=== PATIENT | female | born 1985 | race Caucasian/White ===

== ENCOUNTER → 2021-06-05 13:19 | Outpatient (BNVA) | payer MEDICARE, MEDICAID, SELFPAY | PROVIDERS: PCP Physician Assistant Medical; Visit Provider Nurse Practitioner Family | DX: G43.709 Chronic migraine without aura, not intractable, without status migrainosus (principal); G24.9 Dystonia, unspecified; G56.03 Carpal tunnel syndrome, bilateral upper limbs; Z87.898 Personal history of other specified conditions; Z79.899 Other long term (current) drug therapy | CPT/HCPCS: 99212 ==

== ENCOUNTER → 2021-10-17 13:33 | Outpatient (BNVA) | payer MEDICARE, MEDICAID, SELFPAY | PROVIDERS: PCP Physician Assistant Medical; Visit Provider Nurse Practitioner Family | DX: G43.709 Chronic migraine without aura, not intractable, without status migrainosus (principal); G24.9 Dystonia, unspecified; R51.9 Headache, unspecified | CPT/HCPCS: 99212 ==

== ENCOUNTER → 2022-01-18 10:56 | Outpatient (BNVA) | payer MEDICARE, MEDICAID, SELFPAY | PROVIDERS: PCP Physician Assistant Medical; Visit Provider Nurse Practitioner Family | DX: G43.709 Chronic migraine without aura, not intractable, without status migrainosus (principal); R63.5 Abnormal weight gain; G24.9 Dystonia, unspecified; G56.03 Carpal tunnel syndrome, bilateral upper limbs | CPT/HCPCS: 99212 ==

== ENCOUNTER → 2022-03-07 13:51 | Outpatient (BNVA) | payer MEDICARE, MEDICAID, SELFPAY | PROVIDERS: PCP Physician Assistant Medical; Visit Provider Nurse Practitioner Family | DX: G43.709 Chronic migraine without aura, not intractable, without status migrainosus (principal); G56.03 Carpal tunnel syndrome, bilateral upper limbs; R29.6 Repeated falls | CPT/HCPCS: 99212 ==

== ENCOUNTER → 2022-06-07 15:27 | Outpatient (BNVA) | payer MEDICARE, MEDICAID, SELFPAY | PROVIDERS: PCP Physician Assistant Medical; Visit Provider Nurse Practitioner Family | DX: G43.709 Chronic migraine without aura, not intractable, without status migrainosus (principal); G24.9 Dystonia, unspecified; R26.9 Unspecified abnormalities of gait and mobility; R29.6 Repeated falls; G89.29 Other chronic pain | CPT/HCPCS: 99212 ==

== ENCOUNTER → 2022-09-06 14:59 | Outpatient (BNVA) | payer MEDICARE, MEDICAID, SELFPAY | PROVIDERS: PCP Physician Assistant Medical; Visit Provider Nurse Practitioner Family | DX: M25.572 Pain in left ankle and joints of left foot (principal) | CPT/HCPCS: 99212 ==

== ENCOUNTER → 2022-09-26 15:54 | Outpatient (BNVA) | payer MEDICARE, MEDICAID, SELFPAY | PROVIDERS: PCP Physician Assistant Medical; Visit Provider Anesthesiology | DX: Q79.60 Ehlers-Danlos syndrome, unspecified (principal); G89.4 Chronic pain syndrome; M25.572 Pain in left ankle and joints of left foot; M26.609 Unspecified temporomandibular joint disorder, unspecified side; R26.9 Unspecified abnormalities of gait and mobility; M47.812 Spondylosis without myelopathy or radiculopathy, cervical region; M54.81 Occipital neuralgia; G90.A Postural orthostatic tachycardia syndrome [POTS] | CPT/HCPCS: 99212 ==

== ENCOUNTER → 2023-10-08 09:44 | Outpatient (BNV) | payer MEDICARE, MEDICAID, SELFPAY | PROVIDERS: PCP Physician Assistant Medical; Visit Provider Internal Medicine Medical Oncology | DX: Q79.60 Ehlers-Danlos syndrome, unspecified (principal); G71.3 Mitochondrial myopathy, not elsewhere classified | CPT/HCPCS: 99204 ==

== ENCOUNTER 2023-12-31 14:38 | Outpatient (AMB) | payer MEDICARE, MEDICAID, SELFPAY ==
--- NOTE | 2023-12-31 14:58 | A.OFFVIS_ITS ---
Vital Signs 12/31/23 14:59 Height 5 ft 4 in Weight 163 lb BMI 28.0 BP 98/58 L Blood Pressure Location Rt brachial Position Sitting Respiration 16 Pulse 126 H Pulse Source Pulse Oximeter Pulse Oximetry (%) 98 Oxygen Delivery Method Room Air Intake Visit Reasons: F/up for Migraines-CONF Intake Note: Pt presents to the office for follow up migraines. Export Administrator Required: No Allergies apple [APPLE] Allergy (Severe, Verified 12/31/23 14:58) ANAPHYLAXIS clonidine Allergy (Severe, Verified 12/31/23 14:58) Hypertension cranberry Allergy (Severe, Verified 12/31/23 14:58) Anaphylaxis cyclobenzaprine [From Flexeril] Allergy (Severe, Verified 12/31/23 14:58) Anaphylaxis egg Allergy (Severe, Verified 12/31/23 14:58) Stomach Upset ketorolac [From TORADOL] Allergy (Severe, Verified 12/31/23 14:58) DIFFICULTY BREATHING Milk Containing Products (Dairy) [Milk Containing Products] Allergy (Severe, Verified 12/31/23 14:58) Unknown atorvastatin [From Lipitor] Allergy (Intermediate, Verified 12/31/23 14:58) Unknown broccoli [BROCCOLI] Allergy (Intermediate, Verified 12/31/23 14:58) SWELLING spironolactone [SPIRONOLACTONE] Allergy (Intermediate, Verified 12/31/23 14:58) JOINT SWELLING banana Allergy (Unknown, Verified 12/31/23 14:58) Unknown blueberry Allergy (Unknown, Verified 12/31/23 14:58) Unknown gabapentin [From Neurontin] Allergy (Unknown, Verified 12/31/23 14:58) LISTLESS minocycline [MINOCYCLINE] Allergy (Unknown, Verified 12/31/23 14:58) SWELLING nortriptyline Allergy (Unknown, Verified 12/31/23 14:58) unknown promethazine [Phenergan] Allergy (Unknown, Verified 12/31/23 14:58) unknown tizanidine Allergy (Unknown, Verified 12/31/23 14:58) Migraine methocarbamol [From Robaxin] Allergy (Verified 12/31/23 14:58) Blister metoclopramide Adverse Reaction (Intermediate, Verified 12/31/23 14:58) Confusion diclofenac [From VOLTAREN] Adverse Reaction (Unknown, Verified 12/31/23 14:58) BLOOD STOOL levocarnitine [From CARNITOR] Adverse Reaction (Unknown, Verified 12/31/23 14:58) NAUSEA & VOMITING tramadol [Tramadol] Adverse Reaction (Unknown, Verified 12/31/23 14:58) CONSTIPATION CHICK PEAS Allergy (Severe, Uncoded 12/31/23 14:58) DIFFICULTY BREATHING citrus fruits Allergy (Severe, Uncoded 12/31/23 14:58) Vomiting grapes, green grapes Allergy (Severe, Uncoded 12/31/23 14:58) Anaphylaxis HEMP Allergy (Severe, Uncoded 12/31/23 14:58) DIFFICULTY BREATHING ALL TRIPTYLINE DRUGS Allergy (Unknown, Uncoded 12/31/23 14:58) HIVES amitriptyline Allergy (Unknown, Uncoded 12/31/23 14:58) unknown ANIMAL PROTEIN Allergy (Unknown, Uncoded 12/31/23 14:58) SWELLING animal protein Allergy (Unknown, Uncoded 12/31/23 14:58) unknown Animal proteins Allergy (Unknown, Uncoded 12/31/23 14:58) Unknown Carnitor Allergy (Unknown, Uncoded 12/31/23 14:58) Unknown Flexeril Allergy (Unknown, Uncoded 12/31/23 14:58) unknown From FLEXERIL Allergy (Unknown, Uncoded 12/31/23 14:58) HIVES FRUIT Allergy (Unknown, Uncoded 12/31/23 14:58) SWELLING fruit Allergy (Unknown, Uncoded 12/31/23 14:58) unknown hemp Allergy (Unknown, Uncoded 12/31/23 14:58) unknown Spironolactone Allergy (Unknown, Uncoded 12/31/23 14:58) unknown Tramadol Allergy (Unknown, Uncoded 12/31/23 14:58) unknown Tizanidine Hydrochloride Adverse Reaction (Severe, Uncoded 12/31/23 14:58) Migraine Medication List - Last Reconciled 12/31/23 by BONNIE Rouse albuterol sulfate 90 mcg/actuation 2 puffs inhalation QID PRN 30 days benzocaine 10% 1 appl mucous membrane BID PRN jloctemkfb-efwvrkffcrmog-vnzc 50-325-40 mg 1 tab PO Q4H PRN 30 days bfdfinhkytlu-hhsmetjhwni-klrom 1,000-200 mcg 1 tab PO DAILY diazepam 5 mg PO TID PRN 30 days diphenhydramine HCl (Benadryl) 50 mg PO DAILY PRN epinephrine 0.3 mg IM DIRECTED erenumab-aooe (Aimovig Autoinjector) 140 mg subcut ONCE 30 days etonogestrel (Nexplanon) 68 mg subdermal DAILY lidocaine 5% 5 appl topical TID PRN methocarbamol 1,000 mg (2 x 500 mg) PO TID 30 days metoprolol succinate ER 50 mg PO BID 90 days ondansetron 8 mg PO DAILY PRN 30 days rimegepant (Nurtec ODT) 75 mg PO ONCE PRN 30 days topiramate 50 mg PO BID 30 days trihexyphenidyl 2 mg PO TID PRN zolmitriptan (Zomig) take 1 tab at onset of headache; if no relief, may repeat 1 tab after at least 2 hrs; max = 2 tabs/24 hrs PO 30 days HPI Comments Details: 38-yr-old [male] presents for f/u visit. Pt reports that her current migraine regimen is helping to take the edge off but she is still having daily migraine. The migraine causes right facial droop, sometimes discolored periorbital. She feels Nurtec prn helps but has too many migraine days so does not have enough to treat all migraines. She is interested in trying alternative migraine prevention tx, as aimovig is not fully effective. She does note that the aimovig has reduced her chronic diarhea symptoms. She [place] saw [facility] [place] y[place], and states was told her GI s/s were autonomic but she could have a colonoscopy- though this never happened. She does wonder if we can order IV fluids to help w/ her POTs s/s/, orthostatic lightheadedness. She is also having right and now left sided episodes of severe sharp stabbing in all 3 trigeminal nerve pathways- triggered by light touch. She is now by seen by [facility] dental school who is working to improve her bite and TMJ function. She had consult for ON block- but was advised that OJHN block would not help TN s/s. She did not fully understand why- but reviewed rationale and pt understands. Her fingers do continue to posture at times. Compliant w/ Trihexyphenidyl and diazepam. Has been having body and hip pains. Has consult w/ Dr Mckeon, junior bookkeeper, to re-establish care. [facility] Medical History JC (acute kidney injury) Surgical History History of ear surgery History of mandibular surgery Family History Father Diabetes Thyroid disease Mother Diabetes Polycystic ovary syndrome MCAD deficiency Social History Household Members: Significant Other Alcohol intake: current Alcohol intake frequency: a few times a month Patient Tobacco Use Status: Current everyday Tobacco user service: No Current occupational status: disabled Physical Exam Vital Signs: Last Vital Signs Pulse 126 H 12/31/23 14:59 Resp 16 12/31/23 14:59 BP 98/58 L 12/31/23 14:59 Pulse Ox 98 12/31/23 14:59 Oxygen Delivery Method Room Air 12/31/23 14:59 BMI result Body Mass Index 28.0 Const General: cooperative and no acute distress Orientation/consciousness: patient oriented x3 Resp Effort & Inspection: normal respiratory effort and able to speak in complete sentences Neuro Other: Retrognathia Mild right facial asymmetry- chronic Uses her partner for support to walk short distances. General: patient oriented x3 Cognition (Neuro): normal cognition Psych Appearance: grossly normal Mental Status: mental status grossly normal Speech and movement: Normal speech and movement present Affect: normal affect Attitude: cooperative Assessment & Plan Assessment & Plan (1) Chronic migraine without aura: Code(s): G43.709 - Chronic migraine without aura, not intractable, without status migrainosus Category: Medical (2) History of syncope: Code(s): Z87.898 - Personal history of other specified conditions Category: Medical (3) Dystonia: Code(s): G24.9 - Dystonia, unspecified Category: Medical (4) Trigeminal neuralgia: Comment: Bilateral R > L, probable TN Code(s): G50.0 - Trigeminal neuralgia Category: Medical Plan General: Will request GI input regarding chronic diarrhea/loose stools prior to considering scheduling routine IVFs. Physiatry consult w/ Dr Mckeon as scheduled. For migraine prevention: Start Doxepin 10-20mg qhs- this may help her TN and POTs s/s as well. Start Vyepti 100mg IV q 12 weeks. Once Vyepti started, stop Aimovig as Aimovig not fully effective. Continue Topiramate 50mg bid. Continue Meloxicam 1000mg tid. Continue Metoprolol- uses for POTs- would not increase further d/t [place] s/s Previous trials- amitriptyline/nortriptyline- not tolerated. For acute migarine tx: Continue Zofran (ordered as ODT today) Continue Rizatriptan. Sparingingly use of Fioricet - prn. Continue Nurtec ODT 75mg qd prn migraine, as naratriptan helps w/ migraine induced nausea more so than headache and rizatripatn helps but not always. Previous trials: ubrelvy- did not tolerate. Naratriptan- was helpful- but denied by her insurance. For dystonia: Continue Diazepam 5 mg tid. Continue Trihexyphenidyl 2mg tid f/u in 3-4 months or sooner prn. Orders: Referrals Gastroenterology Referral K52.9 - Noninfective gastroenteritis and colitis, unspecified Medications: New doxepin 10 - 20 mg (1 - 2 x 10 mg) PO BEDTIME 30 caps 3RF 30 days eptinezumab-jj (Vyepti) administer over 30 mins 100 mg IV [id number] G43.709 - Chronic migraine without aura, not intractable, without status migrainosus Coding Level of Care Code Est Pt Level 4 (84007) Diagnoses Chronic migraine without aura G43.709 History of syncope Z87.898 Dystonia G24.9 Trigeminal neuralgia G50.0
[2023-12-31 14:59] VITALS: BP 98/58; PULSE 126; RESP 16; O2SAT 98; BMI 28.0
== END 2023-12-31 15:53 | disposition home or self-care (01) ==
PROVIDERS: PCP Physician Assistant Medical; Visit Provider Nurse Practitioner Family
DX: G43.709 Chronic migraine without aura, not intractable, without status migrainosus (principal); Z87.898 Personal history of other specified conditions; G24.9 Dystonia, unspecified; G50.0 Trigeminal neuralgia
CPT/HCPCS: 99214

== ENCOUNTER → 2023-12-31 14:38 | Outpatient (BNVA) | payer MEDICARE, MEDICAID, SELFPAY | PROVIDERS: PCP Physician Assistant Medical; Visit Provider Nurse Practitioner Family | DX: G43.709 Chronic migraine without aura, not intractable, without status migrainosus (principal); G50.0 Trigeminal neuralgia; G24.9 Dystonia, unspecified; Z87.898 Personal history of other specified conditions | CPT/HCPCS: 99212 ==

== ENCOUNTER 2025-01-06 12:12 | Outpatient (AMB) | payer MEDICARE, MEDICAID, SELFPAY ==
--- NOTE | 2025-01-06 12:22 | A.OFFVIS_ITS ---
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 Required: No Allergies apple (APPLE) Allergy (Severe, Verified 01/06/25 12:24) ANAPHYLAXIS clonidine Allergy (Severe, Verified 01/06/25 12:24) Hypertension cranberry Allergy (Severe, Verified 01/06/25 12:24) Anaphylaxis cyclobenzaprine (From Flexeril) Allergy (Severe, Verified 01/06/25 12:24) Anaphylaxis egg Allergy (Severe, Verified 01/06/25 12:24) Stomach Upset ketorolac (From TORADOL) Allergy (Severe, Verified 01/06/25 12:24) DIFFICULTY BREATHING Milk Containing Products (Dairy) (Milk Containing Products) Allergy (Severe, Verified 01/06/25 12:24) Unknown atorvastatin (From Lipitor) Allergy (Intermediate, Verified 01/06/25 12:24) Unknown broccoli (BROCCOLI) Allergy (Intermediate, Verified 01/06/25 12:24) SWELLING spironolactone (SPIRONOLACTONE) Allergy (Intermediate, Verified 01/06/25 12:24) JOINT SWELLING banana Allergy (Unknown, Verified 01/06/25 12:24) Unknown blueberry Allergy (Unknown, Verified 01/06/25 12:24) Unknown gabapentin (From Neurontin) Allergy (Unknown, Verified 01/06/25 12:24) LISTLESS minocycline (MINOCYCLINE) Allergy (Unknown, Verified 01/06/25 12:24) SWELLING nortriptyline Allergy (Unknown, Verified 01/06/25 12:24) unknown promethazine (Phenergan) Allergy (Unknown, Verified 01/06/25 12:24) unknown tizanidine Allergy (Unknown, Verified 01/06/25 12:24) Migraine methocarbamol (From Robaxin) Allergy (Verified 01/06/25 12:24) Blister metoclopramide Adverse Reaction (Intermediate, Verified 01/06/25 12:24) Confusion diclofenac (From VOLTAREN) Adverse Reaction (Unknown, Verified 01/06/25 12:24) BLOOD STOOL levocarnitine (From CARNITOR) Adverse Reaction (Unknown, Verified 01/06/25 12:24) NAUSEA & VOMITING tramadol (Tramadol) Adverse Reaction (Unknown, Verified 01/06/25 12:24) CONSTIPATION CHICK PEAS Allergy (Severe, Uncoded 01/06/25 12:24) DIFFICULTY BREATHING citrus fruits Allergy (Severe, Uncoded 01/06/25 12:24) Vomiting grapes, green grapes Allergy (Severe, Uncoded 01/06/25 12:24) Anaphylaxis HEMP Allergy (Severe, Uncoded 01/06/25 12:24) DIFFICULTY BREATHING ALL TRIPTYLINE DRUGS Allergy (Unknown, Uncoded 01/06/25 12:24) HIVES amitriptyline Allergy (Unknown, Uncoded 01/06/25 12:24) unknown ANIMAL PROTEIN Allergy (Unknown, Uncoded 01/06/25 12:24) SWELLING animal protein Allergy (Unknown, Uncoded 01/06/25 12:24) unknown Animal proteins Allergy (Unknown, Uncoded 01/06/25 12:24) Unknown Carnitor Allergy (Unknown, Uncoded 01/06/25 12:24) Unknown Flexeril Allergy (Unknown, Uncoded 01/06/25 12:24) unknown From FLEXERIL Allergy (Unknown, Uncoded 01/06/25 12:24) HIVES FRUIT Allergy (Unknown, Uncoded 01/06/25 12:24) SWELLING fruit Allergy (Unknown, Uncoded 01/06/25 12:24) unknown hemp Allergy (Unknown, Uncoded 01/06/25 12:24) unknown Spironolactone Allergy (Unknown, Uncoded 01/06/25 12:24) unknown Tramadol Allergy (Unknown, Uncoded 01/06/25 12:24) unknown Tizanidine Hydrochloride Adverse Reaction (Severe, Uncoded 01/06/25 12:24) Migraine Medication List - Last Reconciled 01/06/25 by Corie Muir, CERTIFIED MEETING PROFESSIONAL albuterol sulfate 90 mcg/actuation 2 puffs inhalation QID PRN 30 days benzocaine 10% 1 appl mucous membrane BID PRN ltpdbfqism-aettbylndxfmv-gkxe 50-325-40 mg 1 tab PO Q4H PRN 30 days iqbdlfszoigl-gwqmijeduvm-xcjaz 1,000-200 mcg 1 tab PO DAILY diazepam 5 mg PO TID PRN 30 days diphenhydramine HCl (Benadryl) 50 mg PO DAILY PRN doxepin 10 - 20 mg (1 - 2 x 10 mg) PO BEDTIME 30 days epinephrine 0.3 mg IM DIRECTED eptinezumab-jjmr (Vyepti) 100 mg IV [id number] erenumab-aooe (Aimovig Autoinjector) 140 mg subcut ONCE 30 days etonogestrel (Nexplanon) 68 mg subdermal DAILY lidocaine 5% 5 appl topical TID PRN methocarbamol 1,000 mg (2 x 500 mg) PO TID 30 days metoprolol succinate ER 50 mg PO BID 30 days naratriptan take 1/2 - 1 tab at onset of headache; if no relief may repeat 1 tab after at least 4 hrs; max = 2 tabs/24 hrs orally PRN; PA APPROVED 10/03/24- 01/01/26 30 days ondansetron 8 mg PO DAILY PRN 30 days rimegepant (Nurtec ODT) 75 mg PO ONCE PRN 30 days topiramate 50 mg PO BID 30 days trihexyphenidyl 2 mg PO TID PRN HPI Comments Details: Lenora is very unfortunate 37 years old female who is suffering 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 In the past she was observed in my office with complains on cervicalgia and occipital neuralgia. She received in August of 2019 bilateral therapeutic C3-C4 C5-C6 and C7 medial branch block bilateral she reported prolonged and significant pain relief after the block. She reported 80% of pain improvement after the injection. In the past she was prescribed by me ketamine which also helps her pain minimally to moderately. She is former resident of [facility] where she received intravenous ketamine which helped her more significant the then oral ketamine. She stated today that she found compounding pharmacy in [place] which will be able to honor my prescriptions. I requested her to provide me information about this prescription pharmacy, it looks like that it is [facility]. 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 She thinks that this injections will help her pain. She also believes that it will help her to open her mouth more freely. She also reports that she is suffering from right-sided trigeminal neuralgia. She requests me to send her to a neurosurgeon who can not deal with this condition. I will send her to Dr. Damon. She also complains on pain in the lower back more on the left and less on the right. Physical exam see as below. It looks like that her pain is coming from sacroiliac joints. She requests me to perform bilateral sacroiliac joint injections. I will schedule her for bilateral therapeutic sacroiliac joint injection. She complains on pain in shoulders joint was hips and knees complains on pain on lumbar spine and pain in cervical spine she was suspected with porphyria in the past but the level of Anthony rings were almost normal so this idea was not approved by a Hematology office. In the past she brought me results of corpoporphyrines from [facility] corpoporphyrine 1 = 29, corpoporphyrine 2 = 66. She is also suffering from mid a chondral disorders she is legally blind her blindness is related to improper perception of the occipital areas of the brain secondary to meet a chondral disease she never brought me the summary from her neurologist regarding of her blindness. 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 She is suffering for postural orthostatic tachycardia syndrome POTS. [facility] Medical History JC (acute kidney injury) Surgical History History of ear surgery History of mandibular surgery Family History Father Diabetes Thyroid disease Mother Diabetes Polycystic ovary syndrome MCAD deficiency Social History Household Members: Significant Other Alcohol intake: current Alcohol intake frequency: a few times a month Patient Tobacco Use Status: Current everyday Tobacco user service: No Current occupational status: disabled Review of Systems Const All systems reviewed & are unremarkable except as noted in HPI and below Physical Exam Vital Signs: Last Vital Signs Pulse 120 H 01/06/25 12:23 BP 117/72 01/06/25 12:23 Pulse Ox 99 01/06/25 12:23 Oxygen Delivery Method Room Air 01/06/25 12:23 BMI result Body Mass Index 32.3 Const General: cooperative and no acute distress Orientation/consciousness: patient oriented x3 HEENT Head: Yes normocephalic Neck Other: Tenderness on palpation in paraspinal spinal region of the cervical spine. Spurling test is negative bilaterally. Lhermitte test is negative bilaterally. Had extension causes significant pain as well as axial compression causes significant pain in the neck. However she denies Lhermitte positive and she denies Valsalva maneuver positive for her pain increase in the neck. Resp Effort & Inspection: normal respiratory effort and able to speak in complete sentences Back/Spine/Pelvis Other: Flexing forward aggravates her pain more than flexing backwards. Reports tenderness on palpation in projection of bilateral sacroiliac joints. Paul test, Gaenslen test, pelvic compression test and pelvic distraction tests are positive bilaterally. 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 - Yaritza-Danlos syndrome, unspecified Category: Medical (2) Chronic pain syndrome: Code(s): G89.4 - Chronic pain syndrome Category: Medical (3) Spondylosis of cervical spine without myelopathy: Code(s): M47.812 - Spondylosis without myelopathy or radiculopathy, cervical region Category: Medical (4) Arthropathy of cervical facet joint: Code(s): M47.812 - Spondylosis without myelopathy or radiculopathy, cervical region Category: Medical (5) TMJ (dislocation of temporomandibular joint): Code(s): S03.00XA - Dislocation of jaw, unspecified side, initial encounter Category: Medical (6) Left ankle pain: Code(s): M25.572 - Pain in left ankle and joints of left foot Category: Medical (7) Gait disorder: Code(s): R26.9 - Unspecified abnormalities of gait and mobility Category: Medical (8) Trigeminal neuralgia of right side of face: Code(s): G50.0 - Trigeminal neuralgia Category: Medical (9) Sacroiliitis: Code(s): M46.1 - Sacroiliitis, not elsewhere classified Category: Medical (10) Sacroiliac joint dysfunction of both sides: Code(s): M53.3 - Sacrococcygeal disorders, not elsewhere classified Category: Medical Plan I will schedule this patient for therapeutic bilateral sacroiliac joint injection. I will see her after the procedure. She gave me the telephone number of compounding pharmacy. We will investigate if they can provide ketamine formulation for the patient. I will also refer patient to [facility] neurosurgery with right-sided trigeminal neuralgia diagnosis. 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
[2025-01-06 12:23] VITALS: BP 117/72; PULSE 120; O2SAT 99; BMI 32.3
--- OUTSIDE RECORDS SUMMARY | 2025-01-06 13:15 | XMS_ITS | Clinical Summary ---
Author Organization [facility] Address [address] [facility] [address] [place] [address] Phone Care Team Providers Care Oven Attendant Name Role Phone Travis Jiménez PA-C Primary Care Provider [phone] Allergies Active Allergy Reactions Criticality Noted Date Comments Amitriptyline 03/26/2022 Other reaction(s): anaphlaxis, and coma Atorvastatin Other (see comments) 03/26/2022 Clonidine Other (see comments) 03/26/2022 Cyclobenzaprine Other (see comments) 03/26/2022 Diclofenac Other (see comments) 03/26/2022 Gabapentin Other (see comments) 03/26/2022 Ketorolac Tromethamine Other (see comments) 03/26/2022 Levocarnitine Other (see comments) 03/26/2022 Methocarbamol Other (see comments) 03/26/2022 Metoclopramide Other (see comments) 03/26/2022 Minocycline Other (see comments) 03/26/2022 Nortriptyline Other (see comments) 03/26/2022 Spironolactone Other (see comments) 03/26/2022 Tizanidine Other (see comments) 03/26/2022 Tramadol 03/26/2022 Other reaction(s): urinary retention, and porphyrigenic reaction Valproic Acid Other (see comments) 03/26/2022 Other reaction(s): porphyrigenic reaction Medications butalbital-aceta minophen-caffein e (FIORICET, ESGIC) 50-325-40 MG per tablet Take 1 tablet by mouth every 4 (four) hours if needed for headaches Active diazePAM (VALIUM) 5 MG tablet Take 5 mg by mouth every 8 (eight) hours if needed for anxiety Active diphenhydrAMINE (BENADRYL) 50 MG capsule Take 50 mg by mouth every 6 (six) hours if needed for itching Active EPINEPHrine (ADRENALIN) 0.1 % nasal solution Administer 0.5 mL into each nostril if needed Active methocarbamol (ROBAXIN) 500 MG tablet Take 500 mg by mouth in the morning and 500 mg at noon and 500 mg in the evening and 500 mg before bedtime. Active naratriptan (AMERGE) 2.5 MG tablet Take 2.5 mg by mouth 1 (one) time if needed for migraine May repeat in 4 hours if unresolved. Do not exceed 5 mg in 24 hours. Active ondansetron (ZOFRAN) 8 MG tablet Take 8 mg by mouth every 8 (eight) hours if needed for nausea or vomiting Active topiramate (TOPAMAX) 50 MG tablet Take 100 mg by mouth in the morning and 100 mg in the evening. Active trihexyphenidyl (ARTANE) 2 MG tablet Take 2 mg by mouth in the morning and 2 mg at noon and 2 mg in the evening. Take with meals. Active UBIQUINONE PO Take 100 mg by mouth 1 (one) time each day Active metoprolol succinate XL (TOPROL XL) 50 MG 24 hr tablet Take 50 mg by mouth in the morning and 50 mg in the evening. Do not crush or chew.. 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 Acute kidney failure, not otherwise specified Family History Medical History Relation Comments Diabetes Father Diabetes Mother Relation Status Comments Father Mother Social History Tobacco Use Types Packs/Day Years Used Date Smoking Tobacco: Some Days Cigarettes Smokeless Tobacco: Never Tobacco Cessation:Ready to Q uit: Not Asked; Counseling Given: No Alcohol Use Standard Drinks/Week Comments Yes 0 (1 standard drink = 0.6 oz pur e alcohol) Comments Unknown Sex and Gender Information Value Date Recorded Sex Assigned at Not on file Legal Sex Female 11:06 AM EDT Gender Identity Not on file Sexual Orientation Not on file Last Filed Vital Signs Vital Sign Reading Time Taken Comments Blood Pressure 126/64 02/27/2023 4:48 PM EDT Pulse 87 02/27/2023 4:48 PM EDT Temperature - - Respiratory Rate - - Oxygen Saturation - - Inhaled Oxygen Concentration - - Weight 72.8 kg (160 lb 6.4 oz) 02/27/2023 4:48 P M EDT Height - - Body Mass Index - - Plan of Treatment Health Maintenance Due Date Last Done Comments Hepatitis B Vaccine (1 of 3 - 19+ 3-dose series) 06/17 Pneumococcal Vaccine: Peds ( 0 to 5 Years) and At-Risk Patients (6 to 49 Years) (1 of 2 - PCV) 2006 Influenza Vaccine (#1) 2025 Insurance Medicare Medicaid [place] Care Teams Oven Attendant Relationship Specialty Start Date End Date Travis Jiménez PA-C [address] [place] [address] PCP - General Physician Sound Designer 02/27/23
--- OUTSIDE RECORDS SUMMARY | 2025-01-06 13:15 | XMS_ITS | Patient Health Record ---
Author Organization [facility] Address [address] [place] [address] Care Team Providers Care Oil Field Technician Name Role Phone Esthela DE LA FUENTE, Pol[place] Primary Care Provider Jerel Rosales [phone] Allergies Allergen (clinical drug ingredient) Drug/Non Drug Allergy documented on EMR Reaction Allergy Type Onset Date Status minocycline Minocycline HCl Unknown Drug Allergy Active gabapentin Gabapentin Unknown Drug Allergy Activ e muscle relaxers (uncoded) Unknown Allergy Active Arthritis meds (uncoded) Unknown Allergy Active nortriptyline Nortriptyline HCl Unknown Drug Allergy Active Reason For Referral No Information Problems Problem Type SNOMED Code ICD Code Onset Dates Problem Status W/U Status Risk Notes Problem Irritable bowel syndrome (96779253) Irritable bowel syndrome (564.1) Active confirmed Problem Blood in stool (798577243) Blood in stool (578.1) Active confirmed Problem Generalized abdominal pain (141463854) Abdominal pain, generalized (789.07) Active confirmed Problem Right lower quadrant pain (704129019) Abdominal pain, RLQ (789.03) Active confirmed Plan Of Treatment No Information Insurance Providers Payer Name Payer Address Payer Phone Subscriber Number Group Number Insured Name Patient Relationship to Insured Coverage Start Date Coverage End Date MEDICAID OF [facility] [address] [place] [address] [id number] ANTIONETTE ABARCABETH Self - patient is the insured Medical (General) History Medical History History ICD Code Reportedly abnormal porphyri n tests-random urine coporphyrin 1 was 29, coproporphyrin 3 is 66, and hepatocarboxyl porphyrin level was 36 Legally blind Mitochondrial myopathy-diagn osed in 2009-[place]. Miller, [place] [facility] [place]blems include left-sided weakness, LE weakness,fatigue, cognitive symptoms Hypogycemia Orthostatic hypotension with autonomic neuropathy--followed by a assistant refinery operator, Dr. Ta, in [place] Denies ME,DM,CVA,Lung disease,renal dise ase ? food allergies--on a Vegan diet Has seen Dr. Valente for prob lems with easy bruising, but apparently with a negative w/u-had a normal CBC in 03/2012 Normal liver profile in 03/2012 Surgical History Surgery Date(Month/Year) adenoids jaw surgery x 2
--- OUTSIDE RECORDS SUMMARY | 2025-01-06 13:15 | XMS_ITS | Clinical Summary ---
Author Organization [facility] Address [address] [place] [address] Phone Care Team Providers Care District Captain Name Role Phone Travis Jiménez Primary Care Provider [phone] Allergies No known active allergies Social History Tobacco Use Types Packs/Day Years Used Date Smoking Tobacco: Never Assessed Comments Unknown Sex and Gender Information Value Date Recorded Sex Assigned at Female 04/25/2024 8:28 AM EST Legal Sex Female 4:38 PM EST Gender Identity Female 04/25/2024 8:28 AM EST Sexual Orientation Not on file Last Filed Vital Signs Vital Sign Reading Time Taken Comments Blood Pressure 100/66 04/25/2024 11:50 AM EST Pulse 98 04/25/2024 11:16 AM EST Temperature 36.5 C (97.7 F) 04/25/2024 4:11 AM EST Respiratory Rate 18 04/25/2024 11:16 AM EST Oxygen Saturation 100% 04/25/2024 10:57 AM EST Inhaled Oxygen Concentration - - Weight 74.8 kg (165 lb) 04/25/2024 4:11 AM EST Height 162.6 cm (5' 4 ) 04/25/2024 4:11 AM EST Body Mass Index 28.32 04/25/2024 4:11 AM EST Plan of Treatment Health Maintenance Due Date Last Done Comments Hepatitis B Vaccines (1 of 3 - 19+ 3-dose series) 2006 Cervical Cancer Screening: P ap Smear 2008 Cholesterol Screening (Lipid Panel) 04/18/2022 HIV Screening 04/18/2022 Hepatitis C Screening 04/18/2022 Medicare Annual Wellness Visit 04/18/2022 Social Influencers of Health Screening 04/18/2022 COVID-19 Vaccine (2 - 4-2 5 season) 2024 02/15/2021 Depression Screening 05/20/2024 Influenza Vaccine (#1) 2025 DTaP,Tdap,and Td Vaccines (2 - Td or Tdap) 12/25/2026 12/25/2016 HIB Vaccines Aged Out No longer eligi ble based on patient's age to complete this topic HPV Vaccines Aged Out No longer eligi ble based on patient's age to complete this topic Hepatitis A Vaccines Aged Out No long er eligible based on patient's age to complete this topic IPV Vaccines Aged Out No longer eligi ble based on patient's age to complete this topic MMR Vaccines Aged Out No longer eligi ble based on patient's age to complete this topic Meningococcal ACWY Vaccine Aged Out N o longer eligible based on patient's age to complete this topic Meningococcal B Vaccine Aged Out No l onger eligible based on patient's age to complete this topic Pneumococcal Vaccine: Pediat rics (0 to 5 Years) and At-Risk Patients (6 to 49 Years) Aged Out No longer eligi ble based on patient's age to complete this topic RSV Immunization Patients Un marco 20 months Aged Out No longer eligible b ased on patient's age to complete this topic Varicella Vaccines Aged Out No longer eligible based on patient's age to complete this topic Insurance MEDICARE MEDICAID - [place] Care Teams District Captain Relationship Specialty Start Date End Date Travis Jiménez PA [address] [place] [address] PCP - General Physician Water Pollution Scientist 04/25/24
== END 2025-01-06 12:51 | disposition home or self-care (01) ==
PROVIDERS: PCP Physician Assistant Medical; Visit Provider Anesthesiology
DX: Q79.60 Ehlers-Danlos syndrome, unspecified (principal); G89.4 Chronic pain syndrome; M47.812 Spondylosis without myelopathy or radiculopathy, cervical region; S03.00XA Dislocation of jaw, unspecified side, initial encounter; M25.572 Pain in left ankle and joints of left foot; R26.9 Unspecified abnormalities of gait and mobility; G50.0 Trigeminal neuralgia; M46.1 Sacroiliitis, not elsewhere classified; M53.3 Sacrococcygeal disorders, not elsewhere classified
CPT/HCPCS: 99213

== ENCOUNTER → 2025-01-06 12:12 | Outpatient (BNVA) | payer MEDICARE, MEDICAID, SELFPAY | PROVIDERS: PCP Physician Assistant Medical; Visit Provider Anesthesiology | DX: M47.812 Spondylosis without myelopathy or radiculopathy, cervical region (principal); M25.572 Pain in left ankle and joints of left foot; M46.1 Sacroiliitis, not elsewhere classified; M53.3 Sacrococcygeal disorders, not elsewhere classified; R26.9 Unspecified abnormalities of gait and mobility; G50.0 Trigeminal neuralgia; M26.629 Arthralgia of temporomandibular joint, unspecified side | CPT/HCPCS: 99212 ==